=== PATIENT | female | born 1985 | race Caucasian/White ===

== ENCOUNTER 2018-09-03 11:47 | Emergency (ER) | payer MEDICAID, SELFPAY ==
[2018-09-03 11:49] VITALS: PULSE 68; RESP 16; TEMP 36.6; O2SAT 98; BMI 23.3
--- NOTE | 2018-09-03 12:02 | CT_ITS ---
STUDY: CT BRAIN WITHOUT CONTRAST REASON FOR EXAM: Female, 33 years old. Dizziness/weakness. History of moyamoya disease. RADIATION DOSAGE (If Supplied By Facility): CTDIvol = ( 44.99 ) mGy, DLP = ( 745.49 ) mGycm TECHNIQUE: Transaxial CT imaging of the brain was performed without administration of intravenous contrast material. Individualized dose optimization techniques were used for this CT. COMPARISON: None. FINDINGS: Normal soft tissue structures. The patient is status post bilateral frontal parietal craniotomy. Normal size ventricles and extra-axial spaces for the patient's age. Focal encephalomalacia is seen in the anterior left frontal lobe suggestive of prior ischemic changes. Small focal area of encephalomalacia is also seen in the lateral aspect of the right frontal lobe. Focal encephalomalacia is also seen in the superior medial aspect of the left frontal lobe. Normal basal ganglia and thalami. Normal brainstem. Normal cerebellum. There is no intracranial hemorrhage. There are no findings of an acute ischemic infarction. Normal visualized paranasal sinuses. CT/Brain/Head without Contrast IMPRESSION: No acute abnormality is seen. 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 Prior bilateral frontal parietal craniotomy. Electronically Signed: Alcides Hamlin MD at 12:49 EST , Service support ,
[2018-09-03] MEDS: 0.9% Normal Saline 1,000 ML 150 ML IV (12:16)
[2018-09-03 12:31] LABS: Absolute Lymphocyte Count 1.97 X10^3/ul (0.83-4.51); Absolute Neutrophil Count 5.2 X10^3/uL (2.0-7.7); Basophil# 0.04 X10^3/uL; Basophil% 0.5 % (0-1); Eosinophil# 0.07 X10^3/uL; Eosinophils% 0.9 % (0-5); Hematocrit 44.7 % (37-47); Hemoglobin 15.3 g/dl (12.0-15.0); Lymphocyte # 1.97 X10^3/ul (4.0); Lymphocyte % 25.2 % (19-41); Mean Corp Hgb Conc 34.2 g/gl (32-36); Mean Corpuscular Hgb 31.5 pg (27.0-32.0); Mean Corpuscular Volume 92.2 fL (81-99); Mean Platelet Vol. 11.9 fl (6.2-12.0); Monocyte# 0.49 X10^3/uL; Monocyte% 6.3 % (0-10); Neutrophil # 5.23 X10^3/uL (2.7-7.7); POSITIVE COUNT NO; POSITIVE DIFFERENTIAL NO; POSITIVE MORPHOLOGY NO; Platelet Count 179 K/mm3 (150-450); RBC Distribution Width CV 13.3 % (11.6-14.6); RBC Distribution Width SD 44.2 fl (35.1-43.9); Red Blood Count 4.85 M/mm3 (4.2-5.4); White Blood Count 7.8 K/mm3 (4.4-11.0)
[2018-09-03 12:43] LABS: Anion Gap 6 (5-15); BUN 12 mg/dL (7-18); BUN/Creat Ratio 12.5 RATIO (10-20); Calcium,Total 8.9 mg/dL (8.5-10.1); Chloride 107 mmol/L (98-107); Creatinine, Serum 0.96 mg/dL (0.55-1.02); EST Glomerular Filtration Rate 71 mL/min (>60); Est Glom Filt Rate - Afr Amer 86 mL/min (>60); Estimated Creatinine Clearance 78.03 ml/min; Glucose 107 mg/dL (74-106); Potassium 3.7 mmol/L (3.5-5.1); Sodium Level 141 mmol/L (136-145)
[2018-09-03 12:55] LABS: Pregnancy, Serum, hCG Quali. NEGATIVE Negative (0-9 Nonpreg)
[2018-09-03 13:09] LABS: Carboxyhemoglobin Frac (CO) 8.5 % (0.0-1.5)
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
--- NOTE | 2018-09-03 13:20 | ED.DEP ---
ED Disposition - Plan for ED Patient: Chief Complaint: Shortness of Breath Instructions: ED Dizziness [facility] Referrals: Alley Petersen MD [Primary Care Provider] - 3-5 Days
[2018-09-03 13:21] VITALS: BP 130/93; PULSE 63; RESP 16; O2SAT 98
--- OUTSIDE RECORDS SUMMARY | 2018-11-05 11:56 | XMS RPT_ITS ---
:1985 Author Organization OH[facility] Care Team Providers Name Role Phone Gloria Saldivar Attending Unavailable Nicola, Simranjot Primary Care Unavailable PROBLEMS PROBLEMS No Problem Records FoundPROCEDURES PROCEDURES No Procedure Records FoundRESULTS RESULTS PROGRESS Observed: 09/05/2018 Status: COMPLETED Source: [place] 11:50 AM [facility] [place] REPOSITORY HNO ID: [id number] Author: Koko Madsen Service: (none) Author Type: In Store Marketer Type: Progress Notes Filed: 09/05/2018 11:55 AM Note Text: ED Follow Up: Patient discharged from [facility] ED on 09/03/18. 1. How are you feeling since your ED visit? Feeling better Have your symptoms improved or resolved? Yes 2. Were you prescribed any medications while in the ED or advised to stop any medication? No - If yes, were you able to fill your prescriptions? Not applicable -if stopped medication, what was the medication? n/a 3. Were you advised to schedule a follow up appointment with your provider? No - If no, Do you feel like you need an appointment scheduled? No - If yes, Do you need this scheduled now or has this already been scheduled? Not applicable 4. Were you able to contact the office or counter person provider prior to your ED visit? Not applicable 5. Is there anything else I can do for you today? Not applicable Pt states she had a problem with her car exhaust which was just fixed today. She had driven a decent distance in her car and got to work and felt funny, dizzy and her boss told her go to ER. She has not had any more dizziness since. Koko Madsen CMA CNPTOUTREACH Observed: 09/05/2018 Status: COMPLETED Source: [place] 12:00 AM [facility] REPOSITORY Patient Outreach (AGFAMPLE) LEE LIND ([id number]) 1985 F Date Time Provider Department 09/05/18 KOKO MADSEN) EPIFANIO During your visit today, we recorded the following information about you: Koko Madsen CMA 09/05/2018 11:55 AM Signed ED Follow Up: Patient discharged from [facility] ED on 09/03/18. 1. How are you feeling since your ED visit? Feeling better Have your symptoms improved or resolved? Yes 2. Were you prescribed any medications while in the ED or advised to stop any medication? No - If yes, were you able to fill your prescriptions? Not applicable -if stopped medication, what was the medication? n/a 3. Were you advised to schedule a follow up appointment with your provider? No - If no, Do you feel like you need an appointment scheduled? No - If yes, Do you need this scheduled now or has this already been scheduled? Not applicable 4. Were you able to contact the office or counter person provider prior to your ED visit? Not applicable 5. Is there anything else I can do for you today? Not applicable Pt states she had a problem with her car exhaust which was just fixed today. She had driven a decent distance in her car and got to work and felt funny, dizzy and her boss told her go to ER. She has not had any more dizziness since. Koko Madsen CMA Allergies As of Date: 09/05/2018 Noted Allergy Reaction PENICILLINS 10/15/2006 Date Reviewed: 04/22/2018 Reviewed by: Quita Altamirano) Paloma - Fully Assessed Prescriptions as of 09/05/2018 Sig: LEVOTHYROXINE 75 MCG TABLET Take 1 tablet by mouth once d* Problem List As Of Date 09/05/2018 Noted Resolved TOX DIF GOITER NO CRISIS [E05.00] INVALID FOR* Hypothyroid [E03.9] INVALID FOR* More... Anxiety [F41.9] INVALID FOR* Alcohol abuse [F10.10] INVALID FOR* More... Hypothyroidism [E03.9] More... 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 Hypertension [I10] INVALID FOR*06/30/2013 More... 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 Seizure [R56.9] INVALID FOR* History of alcohol abuse [Z87.898] INVALID FOR* More... History of cocaine use [Z87.898] INVALID FOR* More... History of depression [Z86.59] INVALID FOR* More... Tobacco use in [O99.330] INVALID FOR* More... H/O sexually transmitted disease [Z86.19] INVALID FOR* More... Patient requested diagnostic testing [Z01.89] INVALID FOR*06/30/2013 More... Family history of autism [Z81.8] INVALID FOR* More... Supervision of other high-risk (V23.89*INVALID FOR* More... Patient requested diagnostic testing [Z01.89] INVALID FOR* More... Palpitation [R00.2] INVALID FOR* Tobacco use disorder [F17.200] INVALID FOR* Encounter Status:Closed by KOKO MADSEN on 09/05/18 DISCHARGE INSTRUCTION Observed: 09/03/2018 Status: F Source: [place] 1:21 PM [facility] REPOSITORY [facility] Medical Records Department [address] [place] [address] Discharge Instruction 09/03/18 1320 MR#: [id number] Acct: [id number] Name: LEE LIND Rep #: [id number] : 1985 33 From: Gloria Saldivar DO PCP: Marcel Block MD Status: REG ER ED Disposition - Plan for ED Patient: Chief Complaint: Shortness of Breath Instructions: ED Dizziness [facility] Referrals: Marcel Block MD [Primary Care Provider] - 3-5 Days What to do if you have Problems For any increased pain, shortness of breath, bleeding, nausea or vomiting, chest pain, or any unexpected problems, contact your Primary Care Provider. Call [facility] ([phone]) or report to the closest Emergency Room. Call 911 if necessary. 09/03/18 1321 <Electronically signed by Gloria Saldivar DO> Date Gloria Saldivar DO Cosigner Signature (If Indicated): Date CC: Marcel Block MD EMERGENCY DEPARTMENT Observed: 09/03/2018 Status: F Source: [place] SUMMARY 1:20 PM [facility] REPOSITORY [facility] Medical Records Department [address] [place] [address] Emergency Department Summary 09/03/18 1317 MR#: [id number] Acct: [id number] Name: LEE LIND Rep #: [id number] : 1985 33 From: Gloria Saldivar DO PCP: Marcel Block MD Status: REG ER - ER Visit Summary Date of Service: 09/03/18 Chief Complaint: [Generalized weakness, lightheadedness, shortness of breath] History of Present Illness: The patient is a 33 F [presents the emergency department with multiple vague complaints that started this morning. Patient states that she was driving her vehicle and her muffler had broken off yesterday. Patient states that she started feeling weird. Vision felt somewhat lightheaded and short of breath and is kind of weak all over. Patient was not sure if this was anxiety related. Patient also was not sure if it may be related to carbon monoxide. Patient also is concerned because she has a history of moyamoya disease. She does describe a slight headache currently. She denies any visual changes. She denies any paresthesias. She denies any focal weakness. She denies recent illness.] Physical Examination: [HEENT-PERRLA, EOMI. Cranial nerves II through XII grossly intact. TMs clear. Mucous membranes moist. No adenopathy. Cardiovascular-regular rate and rhythm without murmur or ectopy Lungs-clear to auscultation, chest wall stable without crepitus or subcu emphysema Abdomen-normoactive bowel sounds, soft, nontender, no rebound or rigidity, no peritoneal signs. Neuro pjpy-pkonoi-ores and heel ayala testing within normal limits, negative Romberg, negative pronator drift, fundi benign Extremities-intact 4, normal range of motion, normal pulses, atraumatic] Test Results: [CT scan of the brain without contrast showed some chronic changes involving the frontal lobes with some encephalomalacia. CBC with differential is normal. Chemistries were normal. Carboxy hemoglobin was 8.5.] Emergency Department Course and Treatment: [] Treatment Plan: [Follow-up with primary care physician in 3-5 days.] Disposition: [Discharged home in stable condition. Patient advised to have her muffler repaired. Given her carboxyhemoglobin level of 8.5 suspect this may be related to her smoking history as she does smoke a pack a day. It is also possible she may have had increased carbon monoxide exposure related to her muffler.] Impression: [Dizziness-etiology uncertain] This note was generated with [employer] dictation software. It may contain incorrect words, spelling, and punctuation that were not noted in review of the chart prior to signing ED Disposition - Plan for ED Patient: Chief Complaint: Shortness of Breath Referrals: Marcel Block MD [Primary Care Provider] - What to do if you have Problems For any increased pain, shortness of breath, bleeding, nausea or vomiting, chest pain, or any unexpected problems, contact your Primary Care Provider. Call [facility] ([phone]) or report to the closest Emergency Room. Call 911 if necessary. 09/03/18 1320 <Electronically signed by Gloria Saldivar DO> Date Remus Ungur DO Cosigner Signature (If Indicated): Date CC: Marcel Block MD CARBOXYHEMOGLOBIN FRAC (CO) Collected: Status: F Source: [place] 09/03/2018 12:40 PM [facility] REPOSITORY TYPE CODE TESTS RESULT OUT OF RANGE REFERENCE UNITS LAB L511.0130 0.0-1.5 % High COHb 8.5 Result Comment: * NON-SMOKER RANGE 1.6 - 5.0% * LIGHT SMOKER RANGE 5.1 - 9.0% * HEAVY SMOKER RANGE Performed By: #### L511.0130 #### [facility] [address] [place], [address] CBC W/DIFF, AUTOMATED Collected: 09/03/2018 Status: F Source: [place] 12:16 PM [facility] REPOSITORY TYPE CODE TESTS RESULT OUT OF RANGE REFERENCE UNITS LAB L100.1000 4.4-11.0 K/mm3 Normal WBC 7.8 LAB L100.1200 4.2-5.4 M/mm3 Normal RBC 4.85 LAB L100.1300 12.0-15.0 g/dl High HGB 15.3 LAB L100.1400 37-47 % Normal HCT 44.7 LAB L100.1500 81-99 fL Normal MCV 92.2 LAB L100.1600 27.0-32.0 pg Normal MCH 31.5 LAB L100.1700 32-36 g/gl Normal MCHC 34.2 LAB L100.1810 11.6-14.6 % Normal RDW CV 13.3 LAB L100.1820 35.1-43.9 fl High RDW SD 44.2 LAB L100.1900 150-450 K/mm3 Normal PLT 179 LAB L100.2000 6.2-12.0 fl Normal MPV 11.9 LAB L100.2100 47-70 % Normal NEUT% 67.0 LAB L100.2200 19-41 % Normal LY% 25.2 LAB L100.2300 0-10 % Normal MONO% 6.3 LAB L100.2400 0-5 % Normal EO% 0.9 LAB L100.2500 0-1 % Normal BASO% 0.5 LAB L100.2550 0.0-0.9 % Normal IM GRAN % 0.100 Result Comment: IG% - Immature Granulocytes (promyelocytes, myelocytes and metamyelocytes) > 1% indicates that a LEFT SHIFT is Present. LAB L100.2620 2.0-7.7 X10 3/uL Normal Absolute Neut 5.2 LAB L100.2720 0.83-4.51 X10 3/ul Normal Absolute Lymph 1.97 Performed By: #### L100.0100 #### [facility] [address] [place], [place], [address] BASIC METABOLIC Collected: 09/03/2018 Status: F Source: [place] PROFILE (BMP) 12:16 PM [facility] REPOSITORY TYPE CODE TESTS RESULT OUT OF RANGE REFERENCE UNITS LAB L501.0100 74-106 mg/dL High GLU 107 Result Comment: Fasting Glucose result from 100 to 125 mg/dL suggests IMPAIRED HOMEOSTASIS per A.D.A. criteria. Please note revised GLUCOSE reference range effective 2017. LAB L501.1000 7-18 mg/dL Normal BUN 12 LAB L501.1100 0.55-1.02 mg/dL Normal CREAT,SERUM 0.96 Result Comment: The validity of the calculated GFR AND GFRAA in patients over 70 years has not been determined. Clinical correlation is essential. LAB L501.1110 >60 mL/min Normal EST GFR 71 Result Comment: Non- GFR Calc LAB L501.1115 >60 mL/min Normal EST GFR - AA 86 Result Comment: GFR Calc LAB L501.1255 ml/min Normal Estimated CRCL 78.03 LAB L501.1300 10-20 RATIO Normal BUN/CRE 12.5 LAB L501.2200 8.5-10 mg/dL Normal .1 CA 8.9 LAB L501.5300 136-14 mmol/L Normal 5 NA 141 LAB L501.5600 3.5-5. mmol/L Normal 1 K 3.7 LAB L501.5900 98-107 mmol/L Normal CL 107 LAB L501.6100 21.0-3 mmol/L Normal 2.0 CO2 28.0 LAB L501.6200 5-15 Normal GAP 6 Performed By: #### L500.2500 #### [facility] [address] [place], [address] ,SERUM,HCG QUALI. Collected: Status: F Source: [place] 09/03/2018 12:16 PM [facility] REPOSITORY TYPE CODE TESTS RESULT OUT OF REFERENCE UNITS RANGE LAB L700.6700 =>Qualitative mIU/mL Normal HCG Qual < 1 triggr LAB L700.7000 0-9 Nonpreg Negative Normal HCGSQUAL NEGATIVE Performed By: #### L700.6800 #### [facility] [address], [address] BRAIN/HEAD WITHOUT Observed: 09/03/2018 Status: F Source: [place] CONTRAST 12:04 PM [facility] REPOSITORY [facility] Imaging Services [address] [facility] [place] [address] Brain/Head without Contrast MR#: [id number] Acct: [id number] Name: LEE LIND Rep #: [id number] : 1985 F 33 From: Alcides Hamlin MD PCP: OUT OF TOWN DOCTOR Status: PRE ER Study: Brain/Head without Contrast Date of Exam: 09/03/18 Exam# [id number] Ordering Dr: Gloria Saldivar DO STUDY: CT BRAIN WITHOUT CONTRAST REASON FOR EXAM: Female, 33 years old. Dizziness/weakness. History of moyamoya disease. RADIATION DOSAGE (If Supplied By Facility): CTDIvol = ( 44.99 ) mGy, DLP = ( 745.49 ) mGycm TECHNIQUE: Transaxial CT imaging of the brain was performed without administration of intravenous contrast material. Individualized dose optimization techniques were used for this CT. COMPARISON: None. FINDINGS: Normal soft tissue structures. The patient is status post bilateral frontal parietal craniotomy. Normal size ventricles and extra-axial spaces for the patient's age. Focal encephalomalacia is seen in the anterior left frontal lobe suggestive of prior ischemic changes. Small focal area of encephalomalacia is also seen in the lateral aspect of the right frontal lobe. Focal encephalomalacia is also seen in the superior medial aspect of the left frontal lobe. Normal basal ganglia and thalami. Normal brainstem. Normal cerebellum. There is no intracranial hemorrhage. There are no findings of an acute ischemic infarction. Normal visualized paranasal sinuses. CT/Brain/Head without Contrast IMPRESSION: No acute abnormality is seen. 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 Prior bilateral frontal parietal craniotomy. Electronically Signed: Alcides Hamlin MD at 12:49 EST , Service support , CC: OUT OF TOWN DOCTOR; Gloria Saldivar DO Automatic Grinder Operator: Signed PROGRESS Observed: 04/22/2018 Status: COMPLETED Source: [place] 9:01 AM [facility] REPOSITORY O ID: [id number] Author: Marcel Block Service: (none) Author Type: Physician Type: Progress Notes Filed: 04/22/2018 9:46 AM Note Text: Subjective: Lee Lind is a 33 year old White female, Patient presents with: Hypothyroidism: 6 month f/u - would lilke to talk about Wellbutrin to stop smoking . HPI Patient last seen 10/22/17 No concerns today. Last TSH 2.00 (08/13/17) Last Pap 4-5 yrs ago - [facility]. Son is 4 yr old. H/o brain Sx - 2012, last saw NeuroSx 2015 - was cleared. 23 months sober from alcohol. No IVDA No cocaine > 10 yr ago. Smoked since the age of 15 y/o, wants to quit smoking. She is due to get health insurance starting October 2018, and she does not want to pay high insurance premiums for a smoker. She has been trying to cut down cigarettes on her own. 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 No drinks for the past 3 weeks (3-5 drinks per week before that) Family history reviewed. ALLERGIES Allergen Reactions - Penicillins levothyroxine (SYNTHROID) 75 mcg tablet, Take 1 tablet by mouth once daily. Take on empty stomach. For Thyroid. No current facility-administered medications for this visit. Review of Systems Constitutional: Negative for chills, fever, malaise/fatigue and weight loss. HENT: Negative for congestion and sore throat. Eyes: Negative for blurred vision and double vision. Respiratory: Negative for cough, shortness of breath and wheezing. Cardiovascular: Negative for chest pain and leg swelling. Gastrointestinal: Negative for abdominal pain, blood in stool, constipation, diarrhea, heartburn, nausea and vomiting. Genitourinary: Negative for dysuria and hematuria. Skin: Negative for rash. Neurological: Negative for dizziness and headaches. Psychiatric/Behavioral: Negative for depression and suicidal ideas. The patient does not have insomnia. BP 112/72 Pulse 62 Temp 98 Resp 16 Ht 5' 5 (1.65m) Wt 150 lb 6.4 oz (68.2kg) SpO2 96% BMI 25.03 kg/(m2). Physical Exam Constitutional: She is oriented to person, place, and time and well-developed, well-nourished, and in no distress. No distress. HENT: Head: Normocephalic. Eyes: Conjunctivae are normal. Right eye exhibits no discharge. Left eye exhibits no discharge. Neck: No thyromegaly present. Cardiovascular: Normal rate, regular rhythm, normal heart sounds and intact distal pulses. No murmur heard. Pulmonary/Chest: Effort normal and breath sounds normal. No respiratory distress. She has no wheezes. Abdominal: Soft. Bowel sounds are normal. She exhibits no distension. There is no tenderness. Musculoskeletal: Edema: no LE edema. Lymphadenopathy: She has no cervical adenopathy. Neurological: She is alert and oriented to person, place, and time. Skin: Skin is warm and dry. Psychiatric: Mood and affect normal. ASSESSMENT/PLAN: 1. Acquired hypothyroidism - ICD9: 244.9, ICD10: E03.9 (primary diagnosis) - Instructed patient on importance of taking on an empty stomach either first thing in the morning or at bedtime. - Last TSH 2.00 (08/13/17) - check TSH - TSH, REFLEX 2. Tobacco use disorder - ICD9: 305.1, ICD10: F17.200 - Cessation encouraged. Pt is motivated. She has tried to cut down. So is willing to try dropping down to 1 cigarette a week for the next several weeks and if she is unable to do so she will make an appointment and I will consider starting her on Wellbutrin. She doesn't want to try nicotine patch/ gum. - Physiologic and physical aspects of tobacco addiction as well as strategies for quitting were discussed. - Counseling was given focusing on the harmful effects of this addiction especially given the patient's medical condition(s) which will be worsened because of the chemicals in tobacco. - Counseling was given 3-4 minutes. - Recommended to called 1-800-QUIT NOW 3. Screening for lipid disorders - ICD9: V77.91, ICD10: Z13.220 - LIPID PANEL BASIC 4. Screening for deficiency anemia - ICD9: V78.1, ICD10: Z13.0 - CBC 5. Screening for diabetes mellitus - ICD9: V77.1, ICD10: Z13.1 - COMP METABOLIC PANEL Advised patient to get flu vaccine this fall. The vaccine is currently not available in our office. Discussed above plan with patient. Pt agreeable with above plan. Marcel Block MD This note was partially generated using [employer] Power voice recognition system, and there may be some incorrect words, spellings, and punctuation that were not noted in checking the note before saving. CNOV Observed: 04/22/2018 Status: COMPLETED Source: [place] 9:00 AM [facility] REPOSITORY Office Visit (AGINTMLW) LEE LIND ([id number]) 1985 F Date Time Provider Department 04/22/18 9:00 AM MARCEL BLOCK AGINTMLW During your visit today, we recorded the following information about you: Temperature Pulse Respiration Blood pressure 98 degrees 62/minute 16/minute 112/72 Weight Height 68.2 kg 1.651 m Marcel Block MD 04/22/2018 9:46 AM Signed Subjective: Lee Lind is a 33 year old White female, Patient presents with: Hypothyroidism: 6 month f/u - would lilke to talk about Wellbutrin to stop smoking . HPI Patient last seen 10/22/17 No concerns today. Last TSH 2.00 (08/13/17) Last Pap 4-5 yrs ago - [facility]. Son is 4 yr old. H/o brain Sx - 2012, last saw NeuroSx 2015 - was cleared. 23 months sober from alcohol. No IVDA No cocaine > 10 yr ago. Smoked since the age of 15 y/o, wants to quit smoking. She is due to get health insurance starting October 2018, and she does not want to pay high insurance premiums for a smoker. She has been trying to cut down cigarettes on her own. 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 No drinks for the past 3 weeks (3-5 drinks per week before that) Family history reviewed. ALLERGIES Allergen Reactions - Penicillins levothyroxine (SYNTHROID) 75 mcg tablet, Take 1 tablet by mouth once daily. Take on empty stomach. For Thyroid. No current facility-administered medications for this visit. Review of Systems Constitutional: Negative for chills, fever, malaise/fatigue and weight loss. HENT: Negative for congestion and sore throat. Eyes: Negative for blurred vision and double vision. Respiratory: Negative for cough, shortness of breath and wheezing. Cardiovascular: Negative for chest pain and leg swelling. Gastrointestinal: Negative for abdominal pain, blood in stool, constipation, diarrhea, heartburn, nausea and vomiting. Genitourinary: Negative for dysuria and hematuria. Skin: Negative for rash. Neurological: Negative for dizziness and headaches. Psychiatric/Behavioral: Negative for depression and suicidal ideas. The patient does not have insomnia. BP 112/72 Pulse 62 Temp 98 Resp 16 Ht 5' 5 (1.65m) Wt 150 lb 6.4 oz (68.2kg) SpO2 96% BMI 25.03 kg/(m2). Physical Exam Constitutional: She is oriented to person, place, and time and well-developed, well-nourished, and in no distress. No distress. HENT: Head: Normocephalic. Eyes: Conjunctivae are normal. Right eye exhibits no discharge. Left eye exhibits no discharge. Neck: No thyromegaly present. Cardiovascular: Normal rate, regular rhythm, normal heart sounds and intact distal pulses. No murmur heard. Pulmonary/Chest: Effort normal and breath sounds normal. No respiratory distress. She has no wheezes. Abdominal: Soft. Bowel sounds are normal. She exhibits no distension. There is no tenderness. Musculoskeletal: Edema: no LE edema. Lymphadenopathy: She has no cervical adenopathy. Neurological: She is alert and oriented to person, place, and time. Skin: Skin is warm and dry. Psychiatric: Mood and affect normal. ASSESSMENT/PLAN: 1. Acquired hypothyroidism - ICD9: 244.9, ICD10: E03.9 (primary diagnosis) - Instructed patient on importance of taking on an empty stomach either first thing in the morning or at bedtime. - Last TSH 2.00 (08/13/17) - check TSH - TSH, REFLEX 2. Tobacco use disorder - ICD9: 305.1, ICD10: F17.200 - Cessation encouraged. Pt is motivated. She has tried to cut down. So is willing to try dropping down to 1 cigarette a week for the next several weeks and if she is unable to do so she will make an appointment and I will consider starting her on Wellbutrin. She doesn't want to try nicotine patch/ gum. - Physiologic and physical aspects of tobacco addiction as well as strategies for quitting were discussed. - Counseling was given focusing on the harmful effects of this addiction especially given the patient's medical condition(s) which will be worsened because of the chemicals in tobacco. - Counseling was given 3-4 minutes. - Recommended to called 1-800-QUIT NOW 3. Screening for lipid disorders - ICD9: V77.91, ICD10: Z13.220 - LIPID PANEL BASIC 4. Screening for deficiency anemia - ICD9: V78.1, ICD10: Z13.0 - CBC 5. Screening for diabetes mellitus - ICD9: V77.1, ICD10: Z13.1 - COMP METABOLIC PANEL Advised patient to get flu vaccine this fall. The vaccine is currently not available in our office. Discussed above plan with patient. Pt agreeable with above plan. Marcel Block MD This note was partially generated using [employer] voice recognition system, and there may be some incorrect words, spellings, and punctuation that were not noted in checking the note before saving. Marcel Block MD 04/22/2018 9:30 AM Addendum SMOKING CESSATION Stopping smoking is the most important thing you can do to protect your current and future health, as well as that of your family. It is the most potent risk factor for the future development of coronary artery disease and heart attacks. Smoking is both an addiction and a learned behavior. The nicotine withdrawal takes anywhere from 2-4 weeks and results in symptoms such as irritability, fatigue, insomnia, coughing, dizziness, poor concentration, hunger and cigarette cravings. After the nicotine withdrawal period, the learned linkage between certain acts or situations and cigarette use remain. Strategies to deal with these must be developed along with new behaviors to ensure successful smoking cessation. STRATEGIES TOWARD SMOKING CESSATION - Make a list of the reasons why you want to quit, plus the benefits to be gained, and compare them to the reasons why you should continue to smoke. - Pick a specific quit date. - If you are interested in using nicotine patches or gum to assist with the nicotine withdrawal, let the staff know. - Inform friends, family, and co-workers that you are quitting and when your quit date is. Ask for their understanding and support. - Prepare your environment by removing all cigarettes prior to your quit date. - Prior to your quit date, avoid smoking in places where you spend a lot of time (such as the house, work, car). - From previous quit attempts, identify what helped you to stop smoking. - From previous quit attempts, identify what triggered relapse. How can you avoid that again? - What things (situations, emotions) do you anticipate will be most challenging, especially in the first few weeks, to your quitting effort? - What can you do to address these challenges? - Avoid (or limit) alcohol consumption during the quitting process. - If your spouse or close coworker currently smoke, consider quitting together or at the very least, develop specific plans to maintain your cigarette abstinence while in the home or at work. - Take each day, each hour, each craving, one at a time. Every step or action you take toward smoking cessation is a success. The only failure is the failure to try. - The health of you and your family, is worth the effort. STOP SMOKING CHECK LIST Preparing to Quit: ___ Make a personal pact with yourself to quit. ___ Pick a date for quitting completely. (My date to quit is ____.) ___ Write down on a card the three most important reasons for quitting. Carry the card with you from now on. Look at it several times a day. ___ Prior to quitting, eliminate smoking completely in 2 or 3 of your high risk situations. ___ Reduce consumption to one pack per day or less. ___ Change to a less desirable brand of cigarettes. ___ Discard your optical sales associate. Use matches. Carry your cigarettes in a different place. ___ Spend a little time each day picturing in your mind stressful events occurring in the future and you not smoking. Actual Quitting: The First Two Weeks ___ Get rid of all cigarettes. Put away all smoking related objects such as ashtrays. Ask the people you live with not to smoke in your presence for the first two weeks. ___ Spend as much time as possible with non-smoking people. ___ Keep busy, especially on evenings and weekends. ___ Avoid high risk situations (large parties, bars, etc.). ___ Spend lots of time in places that prohibit or discourage smoking (e.g., theaters, libraries.) ___ Drink plenty of fluids. ___ Don't substitute food or sugar based products for cigarettes. Use approved substitutions. (... ice water, high bulk/low calorie foods, sugarless gum, mouthwash, brushing teeth.) ___ Begin or increase regular exercise program. ___ When experiencing withdrawal effects: 1. Remind yourself why you are quitting (from your card). 2. Remind yourself that whatever discomfort you are experiencing is only a tiny fraction of the probable discomfort associated with continued smoking. 3. Practice deep breathing or other relaxation techniques - tapes. ___ Remind yourself that you can free yourself from this unhealthy, expensive, messy habit and become a non-smoker. Maintenance of Quitting: After two weeks ___ Remind yourself that the desire to smoke is linked to a great many situations, people and emotional stress. ___ When you do have a desire to smoke, remember that it only lasts a few seconds: distract yourself and leave the situation if necessary. ___ After each desire to smoke has passed, pat yourself on the back, you have just made progress in breaking the habit forever. ___ Save the money on wasted on cigarettes in a special fund and buy yourself something nice. Maintenance of Quitting: After Two Months ___ Be particularly vigilant when unusual life events occur. (.. weddings, holidays, vacations.) ___ Be particularly vigilant when stressful life events occur (e.g., relationship problems, financial or work problems.) ___ Remind yourself regularly that not smoking is completely within your personal control. ___ Never lull yourself into thinking you are out of danger and you can safely have a cigarette or two. -- you cannot!!!!! ___ If, by chance, you do slip and have one or more cigarettes, do not conclude that all is lost. Return to complete abstinence immediately and learn from your experience. ___ If you have gained significant weight since quitting, now is the time to do something about it. ___ Each time you see a cigarettes advertisement, remind yourself of why you quit. Also remember that a powerful industry spends billions of dollars each year trying to get people like yourself re-hooked. Please make appt with your DIRECTOR OF FIELD SERVICE ( [facility]) for pap/ pelvic exam as discussed. Referring Provider: MARCEL BLOCK [[id number]] Allergies As of Date: 04/22/2018 Noted Allergy Reaction PENICILLINS 10/15/2006 Date Reviewed: 04/22/2018 Reviewed by: Quita Altamirano) [place]oma - Fully Assessed Reason for Visit: Hypothyroidism [1738] Cmt: 6 month f/u - would lilke to talk about Wellbutrin to stop smoking Primary Visit Diagnosis:Acquired hypothyroidism [E03.9] Other Visit Diagnoses:Tobacco use disorder [F17.200] Screening for lipid disorders [Z13.220] Screening for deficiency anemia [Z13.0] Screening for diabetes mellitus [Z13.1] Order(s):levothyroxine (SYNTHROID) 75 mcg tabletTake 1 tablet by mouth once daily. Take on empty stomach. For Thyroid.Disp: 90 tabletRfl: 1 TSH, REFLEX [[id number]] Order #: [id number] FUTURE CBC [SQCBC] Order #: [id number] FUTURE COMP METABOLIC PANEL [SQCMP] Order #: [id number] FUTURE LIPID PANEL BASIC [SQLIPB] Order #: [id number] FUTURE Prescriptions as of 04/22/2018 Sig: LEVOTHYROXINE 75 MCG TABLET Take 1 tablet by mouth once d* Problem List As Of Date 04/22/2018 Noted Resolved TOX DIF GOITER NO CRISIS [E05.00] INVALID FOR* Hypothyroid [E03.9] INVALID FOR* More... Anxiety [F41.9] INVALID FOR* Alcohol abuse [F10.10] INVALID FOR* More... Hypothyroidism [E03.9] More... 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 Hypertension [I10] INVALID FOR*06/30/2013 More... 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 Seizure [R56.9] INVALID FOR* History of alcohol abuse [Z87.898] INVALID FOR* More... History of cocaine use [Z87.898] INVALID FOR* More... History of depression [Z86.59] INVALID FOR* More... Tobacco use in [O99.330] INVALID FOR* More... H/O sexually transmitted disease [Z86.19] INVALID FOR* More... Patient requested diagnostic testing [Z01.89] INVALID FOR*06/30/2013 More... Family history of autism [Z81.8] INVALID FOR* More... Supervision of other high-risk (V23.89*INVALID FOR* More... Patient requested diagnostic testing [Z01.89] INVALID FOR* More... Palpitation [R00.2] INVALID FOR* Tobacco use disorder [F17.200] INVALID FOR* Notes for Staff Discussed this visit Other instructions from your clinician: SMOKING CESSATION Stopping smoking is the most important thing you can do to protect your current and future health, as well as that of your family. It is the most potent risk factor for the future development of coronary artery disease and heart attacks. Smoking is both an addiction and a learned behavior. The nicotine withdrawal takes anywhere from 2-4 weeks and results in symptoms such as irritability, fatigue, insomnia, coughing, dizziness, poor concentration, hunger and cigarette cravings. After the nicotine withdrawal period, the learned linkage between certain acts or situations and cigarette use remain. Strategies to deal with these must be developed along with new behaviors to ensure successful smoking cessation. STRATEGIES TOWARD SMOKING CESSATION - Make a list of the reasons why you want to quit, plus the benefits to be gained, and compare them to the reasons why you should continue to smoke. - Pick a specific quit date. - If you are interested in using nicotine patches or gum to assist with the nicotine withdrawal, let the staff know. - Inform friends, family, and co-workers that you are quitting and when your quit date is. Ask for their understanding and support. - Prepare your environment by removing all cigarettes prior to your quit date. - Prior to your quit date, avoid smoking in places where you spend a lot of time (such as the house, work, car). - From previous quit attempts, identify what helped you to stop smoking. - From previous quit attempts, identify what triggered relapse. How can you avoid that again? - What things (situations, emotions) do you anticipate will be most challenging, especially in the first few weeks, to your quitting effort? - What can you do to address these challenges? - Avoid (or limit) alcohol consumption during the quitting process. - If your spouse or close coworker currently smoke, consider quitting together or at the very least, develop specific plans to maintain your cigarette abstinence while in the home or at work. - Take each day, each hour, each craving, one at a time. Every step or action you take toward smoking cessation is a success. The only failure is the failure to try. - The health of you and your family, is worth the effort. STOP SMOKING CHECK LIST Preparing to Quit: ___ Make a personal pact with yourself to quit. ___ Pick a date for quitting completely. (My date to quit is ____.) ___ Write down on a card the three most important reasons for quitting. Carry the card with you from now on. Look at it several times a day. ___ Prior to quitting, eliminate smoking completely in 2 or 3 of your high risk situations. ___ Reduce consumption to one pack per day or less. ___ Change to a less desirable brand of cigarettes. ___ Discard your optical sales associate. Use matches. Carry your cigarettes in a different place. ___ Spend a little time each day picturing in your mind stressful events occurring in the future and you not smoking. Actual Quitting: The First Two Weeks ___ Get rid of all cigarettes. Put away all smoking related objects such as ashtrays. Ask the people you live with not to smoke in your presence for the first two weeks. ___ Spend as much time as possible with non-smoking people. ___ Keep busy, especially on evenings and weekends. ___ Avoid high risk situations (large parties, bars, etc.). ___ Spend lots of time in places that prohibit or discourage smoking (e.g., theaters, libraries.) ___ Drink plenty of fluids. ___ Don't substitute food or sugar based products for cigarettes. Use approved substitutions. (... ice water, high bulk/low calorie foods, sugarless gum, mouthwash, brushing teeth.) ___ Begin or increase regular exercise program. ___ When experiencing withdrawal effects: 1. Remind yourself why you are quitting (from your card). 2. Remind yourself that whatever discomfort you are experiencing is only a tiny fraction of the probable discomfort associated with continued smoking. 3. Practice deep breathing or other relaxation techniques - tapes. ___ Remind yourself that you can free yourself from this unhealthy, expensive, messy habit and become a non-smoker. Maintenance of Quitting: After two weeks ___ Remind yourself that the desire to smoke is linked to a great many situations, people and emotional stress. ___ When you do have a desire to smoke, remember that it only lasts a few seconds: distract yourself and leave the situation if necessary. ___ After each desire to smoke has passed, pat yourself on the back, you have just made progress in breaking the habit forever. ___ Save the money on wasted on cigarettes in a special fund and buy yourself something nice. Maintenance of Quitting: After Two Months ___ Be particularly vigilant when unusual life events occur. (.. weddings, holidays, vacations.) ___ Be particularly vigilant when stressful life events occur (e.g., relationship problems, financial or work problems.) ___ Remind yourself regularly that not smoking is completely within your personal control. ___ Never lull yourself into thinking you are out of danger and you can safely have a cigarette or two. -- you cannot!!!!! ___ If, by chance, you do slip and have one or more cigarettes, do not conclude that all is lost. Return to complete abstinence immediately and learn from your experience. ___ If you have gained significant weight since quitting, now is the time to do something about it. ___ Each time you see a cigarettes advertisement, remind yourself of why you quit. Also remember that a powerful industry spends billions of dollars each year trying to get people like yourself re-hooked. Please make appt with your DIRECTOR OF FIELD SERVICE ( [facility]) for pap/ pelvic exam as discussed. Prescriptions ordered this encounter Disp Refills Start End LEVOTHYROXINE 75 MCG TABLET 90 t* 1 04/22/2018 10/19/2018 Route: ORAL Sig: Take 1 tablet by mouth once daily. Take on empty stomach. For Thyroid. Medications Discontinued During This Encounter levothyroxine (SYNTHROID) 75 mcg tab* 90 t* 1 10/22/2017 04/22/2018 Route: ORAL Sig: Take 1 tablet by mouth once daily. Take on empty stomach. For Thyroid. Disc: Reason for discontinue is not on file. Follow Up: Discussed this visit Disposition: Return in about 6 months (around 10/20/2018), or if symptoms worsen or fail to improve. Follow-up and Disposition History Recorded Encounter Status:Closed by MD MARCEL BLOCK on 04/22/18 PROGRESS Observed: 10/22/2017 Status: COMPLETED Source: [place] 9:35 AM [facility] O ID: [id number] Author: Marcel Block Service: (none) Author Type: Physician Type: Progress Notes Filed: 10/28/2017 7:16 AM Note Text: Subjective: Lee Lind is a 32 year old White female, Patient presents with: Refill Request . HPI H/o hypothy - on synthy. Results for LEE LIND ( ) as of 10/22/2017 09:38 Ref. Range 08/23/2016 08:00 08/23/2016 08:58 02/07/2017 12:47 08/13/2017 08:10 TSH Latest Ref Range: 0.34 - 4.82 uIU/mL 1.30 1.35 2.00 Denies skin changes. Has been trying to eat healthy - lost 10lbs over past year. Last Pap 2 yrs ago - [facility]. Son is 4 yr old. H/o brain Sx - 2012, last saw Neuro[facility]x 2015 - was cleared. 17 months sober from alcohol. 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 No drinks for the past 3 weeks (3-5 drinks per week before that) Family history reviewed - MGM - DM . ALLERGIES Allergen Reactions - Penicillins Current Outpatient Prescriptions: levothyroxine (SYNTHROID) 75 mcg tablet Take 1 tablet by mouth once daily. Take on empty stomach. For Thyroid. No current facility-administered medications for this visit. Review of Systems Constitutional: Negative for chills, fever, malaise/fatigue and weight loss. HENT: Negative for congestion, ear pain and sore throat. Eyes: Negative for blurred vision and double vision. Respiratory: Negative for cough, shortness of breath and wheezing. Cardiovascular: Negative for chest pain, orthopnea and leg swelling. Gastrointestinal: Negative for abdominal pain, blood in stool, constipation, diarrhea, heartburn, nausea and vomiting. Genitourinary: Negative for dysuria. Skin: Negative for rash. Neurological: Negative for dizziness and headaches. Psychiatric/Behavioral: Negative for depression and substance abuse. The patient is not nervous/anxious and does not have insomnia. BP 122/66 Pulse 66 Temp (Src) 98.2 (Oral) Ht 5' 5 (1.65m) Wt 146 lb 12.8 oz (66.6kg) BMI 24.43 kg/(m2). Physical Exam Constitutional: She is oriented to person, place, and time and well-developed, well-nourished, and in no distress. No distress. HENT: Head: Normocephalic. Eyes: Conjunctivae are normal. Right eye exhibits no discharge. Left eye exhibits no discharge. Cardiovascular: Normal rate, regular rhythm, normal heart sounds and intact distal pulses. No murmur heard. Pulmonary/Chest: Effort normal and breath sounds normal. No respiratory distress. She has no wheezes. Abdominal: Soft. Bowel sounds are normal. She exhibits no distension. There is no tenderness. Musculoskeletal: Edema: no LE edema. Neurological: She is alert and oriented to person, place, and time. Skin: Skin is warm and dry. Psychiatric: Mood and affect normal. ASSESSMENT/PLAN: 1. Acquired hypothyroidism - ICD9: 244.9, ICD10: E03.9 (primary diagnosis) - Instructed patient on importance of taking on an empty stomach either first thing in the morning or at bedtime. - Recent TSH WNL - continue current dose of Synthroid 0.075 mg 2. Screening for lipid disorders - ICD9: V77.91, ICD10: Z13.220 - LIPID PANEL BASIC 3. Tobacco use disorder - ICD9: 305.1, ICD10: F17.200 - Cessation encouraged. - Physiologic and physical aspects of tobacco addiction as well as strategies for quitting were discussed. - Counseling was given focusing on the harmful effects of this addiction especially given the patient's medical condition(s) which will be worsened because of the chemicals in tobacco. - Counseling was given 3-4 minutes. 4. History of alcohol abuse - ICD9: 305.03, ICD10: Z87.898 Been sober. Patient to make appointment for a Pap smear with her turkey pinner. Discussed above plan with patient. Pt agreeable with above plan. Marcel Block MD This note was partially generated using [employer] voice recognition system, and there may be some incorrect words, spellings, and punctuation that were not noted in checking the note before saving. CNOV Observed: 10/22/2017 Status: COMPLETED Source: [place] 9:30 AM [facility] REPOSITORY Office Visit (AGINTMLW) LEE LIND ([id number]) 1985 F Date Time Provider Department 10/22/17 9:30 AM MARCEL BLOCK During your visit today, we recorded the following information about you: Temperature Pulse Blood pressure Weight 98.2 degrees 66/minute 122/66 66.6 kg Height 1.651 m Eb Alaniz LPN 10/22/2017 9:34 AM Signed Pt presents to establish care with SS. She needs refills on her levothyroxine, had labs recently. She is 17 months sober. Marcel Block MD 10/28/2017 7:16 AM Signed Subjective: Lee Lind is a 32 year old White female, Patient presents with: Refill Request . HPI H/o hypothy - on synthy. Results for LEE LIND ( ) as of 10/22/2017 09:38 Ref. Range 08/23/2016 08:00 08/23/2016 08:58 02/07/2017 12:47 08/13/2017 08:10 TSH Latest Ref Range: 0.34 - 4.82 uIU/mL 1.30 1.35 2.00 Denies skin changes. Has been trying to eat healthy - lost 10lbs over past year. Last Pap 2 yrs ago - [facility]. Son is 4 yr old. H/o brain Sx - 2012, last saw NeuroSx 2015 - was cleared. 17 months sober from alcohol. 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 No drinks for the past 3 weeks (3-5 drinks per week before that) Family history reviewed - MGM - DM . ALLERGIES Allergen Reactions - Penicillins Current Outpatient Prescriptions: levothyroxine (SYNTHROID) 75 mcg tablet Take 1 tablet by mouth once daily. Take on empty stomach. For Thyroid. No current facility-administered medications for this visit. Review of Systems Constitutional: Negative for chills, fever, malaise/fatigue and weight loss. HENT: Negative for congestion, ear pain and sore throat. Eyes: Negative for blurred vision and double vision. Respiratory: Negative for cough, shortness of breath and wheezing. Cardiovascular: Negative for chest pain, orthopnea and leg swelling. Gastrointestinal: Negative for abdominal pain, blood in stool, constipation, diarrhea, heartburn, nausea and vomiting. Genitourinary: Negative for dysuria. Skin: Negative for rash. Neurological: Negative for dizziness and headaches. Psychiatric/Behavioral: Negative for depression and substance abuse. The patient is not nervous/anxious and does not have insomnia. BP 122/66 Pulse 66 Temp (Src) 98.2 (Oral) Ht 5' 5ANDquot; (1.65m) Wt 146 lb 12.8 oz (66.6kg) BMI 24.43 kg/(m2). Physical Exam Constitutional: She is oriented to person, place, and time and well-developed, well-nourished, and in no distress. No distress. HENT: Head: Normocephalic. Eyes: Conjunctivae are normal. Right eye exhibits no discharge. Left eye exhibits no discharge. Cardiovascular: Normal rate, regular rhythm, normal heart sounds and intact distal pulses. No murmur heard. Pulmonary/Chest: Effort normal and breath sounds normal. No respiratory distress. She has no wheezes. Abdominal: Soft. Bowel sounds are normal. She exhibits no distension. There is no tenderness. Musculoskeletal: Edema: no LE edema. Neurological: She is alert and oriented to person, place, and time. Skin: Skin is warm and dry. Psychiatric: Mood and affect normal. ASSESSMENT/PLAN: 1. Acquired hypothyroidism - ICD9: 244.9, ICD10: E03.9 (primary diagnosis) - Instructed patient on importance of taking on an empty stomach either first thing in the morning or at bedtime. - Recent TSH WNL - continue current dose of Synthroid 0.075 mg 2. Screening for lipid disorders - ICD9: V77.91, ICD10: Z13.220 - LIPID PANEL BASIC 3. Tobacco use disorder - ICD9: 305.1, ICD10: F17.200 - Cessation encouraged. - Physiologic and physical aspects of tobacco addiction as well as strategies for quitting were discussed. - Counseling was given focusing on the harmful effects of this addiction especially given the patient's medical condition(s) which will be worsened because of the chemicals in tobacco. - Counseling was given 3-4 minutes. 4. History of alcohol abuse - ICD9: 305.03, ICD10: Z87.898 Been sober. Patient to make appointment for a Pap smear with her turkey pinner. Discussed above plan with patient. Pt agreeable with above plan. Marcel Block MD This note was partially generated using [employer] voice recognition system, and there may be some incorrect words, spellings, and punctuation that were not noted in checking the note before saving. Marcel Block MD 10/22/2017 10:10 AM Addendum SMOKING CESSATION Stopping smoking is the most important thing you can do to protect your current and future health, as well as that of your family. It is the most potent risk factor for the future development of coronary artery disease and heart attacks. Smoking is both an addiction and a learned behavior. The nicotine withdrawal takes anywhere from 2-4 weeks and results in symptoms such as irritability, fatigue, insomnia, coughing, dizziness, poor concentration, hunger and cigarette cravings. After the nicotine withdrawal period, the learned linkage between certain acts or situations and cigarette use remain. Strategies to deal with these must be developed along with new behaviors to ensure successful smoking cessation. STRATEGIES TOWARD SMOKING CESSATION - Make a list of the reasons why you want to quit, plus the benefits to be gained, and compare them to the reasons why you should continue to smoke. - Pick a specific quit date. - If you are interested in using nicotine patches or gum to assist with the nicotine withdrawal, let the staff know. - Inform friends, family, and co-workers that you are quitting and when your quit date is. Ask for their understanding and support. - Prepare your environment by removing all cigarettes prior to your quit date. - Prior to your quit date, avoid smoking in places where you spend a lot of time (such as the house, work, car). - From previous quit attempts, identify what helped you to stop smoking. - From previous quit attempts, identify what triggered relapse. How can you avoid that again? - What things (situations, emotions) do you anticipate will be most challenging, especially in the first few weeks, to your quitting effort? - What can you do to address these challenges? - Avoid (or limit) alcohol consumption during the quitting process. - If your spouse or close coworker currently smoke, consider quitting together or at the very least, develop specific plans to maintain your cigarette abstinence while in the home or at work. - Take each day, each hour, each craving, one at a time. Every step or action you take toward smoking cessation is a success. The only failure is the failure to try. - The health of you and your family, is worth the effort. STOP SMOKING CHECK LIST Preparing to Quit: ___ Make a personal pact with yourself to quit. ___ Pick a date for quitting completely. (My date to quit is ____.) ___ Write down on a card the three most important reasons for quitting. Carry the card with you from now on. Look at it several times a day. ___ Prior to quitting, eliminate smoking completely in 2 or 3 of your high risk situations. ___ Reduce consumption to one pack per day or less. ___ Change to a less desirable brand of cigarettes. ___ Discard your optical sales associate. Use matches. Carry your cigarettes in a different place. ___ Spend a little time each day picturing in your mind stressful events occurring in the future and you not smoking. Actual Quitting: The First Two Weeks ___ Get rid of all cigarettes. Put away all smoking related objects such as ashtrays. Ask the people you live with not to smoke in your presence for the first two weeks. ___ Spend as much time as possible with non-smoking people. ___ Keep busy, especially on evenings and weekends. ___ Avoid high risk situations (large parties, bars, etc.). ___ Spend lots of time in places that prohibit or discourage smoking (e.g., theaters, libraries.) ___ Drink plenty of fluids. ___ Don't substitute food or sugar based products for cigarettes. Use approved substitutions. (... ice water, high bulk/low calorie foods, sugarless gum, mouthwash, brushing teeth.) ___ Begin or increase regular exercise program. ___ When experiencing withdrawal effects: 1. Remind yourself why you are quitting (from your card). 2. Remind yourself that whatever discomfort you are experiencing is only a tiny fraction of the probable discomfort associated with continued smoking. 3. Practice deep breathing or other relaxation techniques - tapes. ___ Remind yourself that you can free yourself from this unhealthy, expensive, messy habit and become a non-smoker. Maintenance of Quitting: After two weeks ___ Remind yourself that the desire to smoke is linked to a great many situations, people and emotional stress. ___ When you do have a desire to smoke, remember that it only lasts a few seconds: distract yourself and leave the situation if necessary. ___ After each desire to smoke has passed, pat yourself on the back, you have just made progress in breaking the habit forever. ___ Save the money on wasted on cigarettes in a ANDquot;special fundANDquot; and buy yourself something nice. Maintenance of Quitting: After Two Months ___ Be particularly vigilant when unusual life events occur. (.. weddings, holidays, vacations.) ___ Be particularly vigilant when stressful life events occur (e.g., relationship problems, financial or work problems.) ___ Remind yourself regularly that not smoking is completely within your personal control. ___ Never lull yourself into thinking you are out of danger and you can safely have a cigarette or two. -- you cannot!!!!! ___ If, by chance, you do slip and have one or more cigarettes, do not conclude that ANDquot;all is lostANDquot;. Return to complete abstinence immediately and learn from your experience. ___ If you have gained significant weight since quitting, now is the time to do something about it. ___ Each time you see a cigarettes advertisement, remind yourself of why you quit. Also remember that a powerful industry spends billions of dollars each year trying to get people like yourself ANDquot;re-hookedANDquot;. Make appointment with your DIRECTOR OF FIELD SERVICE for pap. Referring Provider: SELF [200] Allergies As of Date: 10/22/2017 Noted Allergy Reaction PENICILLINS 10/15/2006 Date Reviewed: 10/22/2017 Reviewed by: Marcel Block - Fully Assessed Reason for Visit: Refill Request [94] Primary Visit Diagnosis:Acquired hypothyroidism [E03.9] Other Visit Diagnoses:Screening for lipid disorders [Z13.220] Tobacco use disorder [F17.200] History of alcohol abuse [Z87.898] Order(s):LIPID PANEL BASIC [SQLIPB] Order #: [id number] FUTURE levothyroxine (SYNTHROID) 75 mcg tabletTake 1 tablet by mouth once daily. Take on empty stomach. For Thyroid.Disp: 90 tabletRfl: 1 Prescriptions as of 10/22/2017 Sig: LEVOTHYROXINE 75 MCG TABLET Take 1 tablet by mouth once d* Medication notes this encounter LORATADINE 10 MG TABLET >> Eb Alaniz LPN 10/22/2017 9:28 AM >> EB ALANIZ LPN Oct 22, 2017 9:28 AM Not taking. Problem List As Of Date 10/22/2017 Noted Resolved TOX DIF GOITER NO CRISIS [E05.00] INVALID FOR* Hypothyroid [E03.9] INVALID FOR* More... Anxiety [F41.9] INVALID FOR* Alcohol abuse [F10.10] INVALID FOR* More... Hypothyroidism [E03.9] More... 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 Hypertension [I10] INVALID FOR*06/30/2013 More... 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 Seizure [R56.9] INVALID FOR* History of alcohol abuse [Z87.898] INVALID FOR* More... History of cocaine use [Z87.898] INVALID FOR* More... History of depression [Z86.59] INVALID FOR* More... Tobacco use in [O99.330] INVALID FOR* More... H/O sexually transmitted disease [Z86.19] INVALID FOR* More... Patient requested diagnostic testing [Z01.89] INVALID FOR*06/30/2013 More... Family history of autism [Z81.8] INVALID FOR* More... Supervision of other high-risk (V23.89*INVALID FOR* More... Patient requested diagnostic testing [Z01.89] INVALID FOR* More... Palpitation [R00.2] INVALID FOR* Tobacco use disorder [F17.200] INVALID FOR* Notes for Staff Discussed this visit Other instructions from your clinician: SMOKING CESSATION Stopping smoking is the most important thing you can do to protect your current and future health, as well as that of your family. It is the most potent risk factor for the future development of coronary artery disease and heart attacks. Smoking is both an addiction and a learned behavior. The nicotine withdrawal takes anywhere from 2-4 weeks and results in symptoms such as irritability, fatigue, insomnia, coughing, dizziness, poor concentration, hunger and cigarette cravings. After the nicotine withdrawal period, the learned linkage between certain acts or situations and cigarette use remain. Strategies to deal with these must be developed along with new behaviors to ensure successful smoking cessation. STRATEGIES TOWARD SMOKING CESSATION - Make a list of the reasons why you want to quit, plus the benefits to be gained, and compare them to the reasons why you should continue to smoke. - Pick a specific quit date. - If you are interested in using nicotine patches or gum to assist with the nicotine withdrawal, let the staff know. - Inform friends, family, and co-workers that you are quitting and when your quit date is. Ask for their understanding and support. - Prepare your environment by removing all cigarettes prior to your quit date. - Prior to your quit date, avoid smoking in places where you spend a lot of time (such as the house, work, car). - From previous quit attempts, identify what helped you to stop smoking. - From previous quit attempts, identify what triggered relapse. How can you avoid that again? - What things (situations, emotions) do you anticipate will be most challenging, especially in the first few weeks, to your quitting effort? - What can you do to address these challenges? - Avoid (or limit) alcohol consumption during the quitting process. - If your spouse or close coworker currently smoke, consider quitting together or at the very least, develop specific plans to maintain your cigarette abstinence while in the home or at work. - Take each day, each hour, each craving, one at a time. Every step or action you take toward smoking cessation is a success. The only failure is the failure to try. - The health of you and your family, is worth the effort. STOP SMOKING CHECK LIST Preparing to Quit: ___ Make a personal pact with yourself to quit. ___ Pick a date for quitting completely. (My date to quit is ____.) ___ Write down on a card the three most important reasons for quitting. Carry the card with you from now on. Look at it several times a day. ___ Prior to quitting, eliminate smoking completely in 2 or 3 of your high risk situations. ___ Reduce consumption to one pack per day or less. ___ Change to a less desirable brand of cigarettes. ___ Discard your optical sales associate. Use matches. Carry your cigarettes in a different place. ___ Spend a little time each day picturing in your mind stressful events occurring in the future and you not smoking. Actual Quitting: The First Two Weeks ___ Get rid of all cigarettes. Put away all smoking related objects such as ashtrays. Ask the people you live with not to smoke in your presence for the first two weeks. ___ Spend as much time as possible with non-smoking people. ___ Keep busy, especially on evenings and weekends. ___ Avoid high risk situations (large parties, bars, etc.). ___ Spend lots of time in places that prohibit or discourage smoking (e.g., theaters, libraries.) ___ Drink plenty of fluids. ___ Don't substitute food or sugar based products for cigarettes. Use approved substitutions. (... ice water, high bulk/low calorie foods, sugarless gum, mouthwash, brushing teeth.) ___ Begin or increase regular exercise program. ___ When experiencing withdrawal effects: 1. Remind yourself why you are quitting (from your card). 2. Remind yourself that whatever discomfort you are experiencing is only a tiny fraction of the probable discomfort associated with continued smoking. 3. Practice deep breathing or other relaxation techniques - tapes. ___ Remind yourself that you can free yourself from this unhealthy, expensive, messy habit and become a non-smoker. Maintenance of Quitting: After two weeks ___ Remind yourself that the desire to smoke is linked to a great many situations, people and emotional stress. ___ When you do have a desire to smoke, remember that it only lasts a few seconds: distract yourself and leave the situation if necessary. ___ After each desire to smoke has passed, pat yourself on the back, you have just made progress in breaking the habit forever. ___ Save the money on wasted on cigarettes in a special fund and buy yourself something nice. Maintenance of Quitting: After Two Months ___ Be particularly vigilant when unusual life events occur. (.. weddings, holidays, vacations.) ___ Be particularly vigilant when stressful life events occur (e.g., relationship problems, financial or work problems.) ___ Remind yourself regularly that not smoking is completely within your personal control. ___ Never lull yourself into thinking you are out of danger and you can safely have a cigarette or two. -- you cannot!!!!! ___ If, by chance, you do slip and have one or more cigarettes, do not conclude that all is lost. Return to complete abstinence immediately and learn from your experience. ___ If you have gained significant weight since quitting, now is the time to do something about it. ___ Each time you see a cigarettes advertisement, remind yourself of why you quit. Also remember that a [employer] industry spends billions of dollars each year trying to get people like yourself re-hooked. Make appointment with your DIRECTOR OF FIELD SERVICE for pap. Visit Notes: >> Eb (Engineering Professor) Katty Zuniga Oct 22, 2017 9:33 AM Status: Signed Pt presents to establish care with SS. She needs refills on her levothyroxine, had labs recently. She is 17 months sober. Prescriptions ordered this encounter Disp Refills Start End LEVOTHYROXINE 75 MCG TABLET 90 t* 1 10/22/2017 04/20/2018 Route: ORAL Sig: Take 1 tablet by mouth once daily. Take on empty stomach. For Thyroid. Medications Discontinued During This Encounter loratadine (CLARITIN) 10 mg tablet 10 t* 0 09/10/2016 10/22/2017 Route: ORAL Sig: Take 1 tablet by mouth once daily. Disc: Discontinued by Patient levothyroxine (SYNTHROID) 75 mcg tab* 30 t* 0 08/23/2017 10/22/2017 Route: ORAL Sig: Take 1 tablet by mouth once daily. Take on empty stomach. For Thyroid. Disc: Reason for discontinue is not on file. Follow Up: Discussed this visit Disposition: Return in about 6 months (around 04/24/2018), or if symptoms worsen or fail to improve, for hypothyroidism. Follow-up and Disposition History Recorded Encounter Status:Closed by MD BLOCK SIMRANJOT on 10/28/17 ALLERGIES ALLERGIES DATE TYPE / CODE NAME / CODE REACTION SEVERITY SOURCE 09/03/2018 Drug Penicillins/ Hives Unknown [facility] Allergy/4160 [id number]([facility] 18274(SNOMED XNORM) Repository CT) ENCOUNTERS ENCOUNTERS ADMIT/DISCHARGE ACCOUNT ADMITTING ENCOUNTER LOCATION SOURCE NUMBER CLASS 09/03/2018/ [id number] Emergency [place] ing:ED Repository PAYERS PAYERS ENCOUNTER GUARANTOR PAYER SUBSCRIBER SOURCE 09/03/2018 LEE Serra Primary LEE Nye [id number] OLD Insurance:CARESOURCEP MIGUEL ÁNGELDOB: [facility] damian [facility]: [id number] [address]Yui: [id number] Repository Date:2018-09-03P O (CG) [address]ATTN: [place] [address]CW: 09/03/2018 Secondary NOT GIVENUNK [place] Insurance:SELF PAY [facility] Number: Effective Repository Date:2018-09-03
== END 2018-09-03 13:28 | disposition home or self-care (01) ==
LOC: ED 12:52
PROVIDERS: Emergency Provider Emergency Medicine; Family Provider Student in an Organized Health Care Education/Training Program; PCP Student in an Organized Health Care Education/Training Program
DX: R42 Dizziness and giddiness (principal); R53.1 Weakness; F17.200 Nicotine dependence, unspecified, uncomplicated
CPT/HCPCS: 36415; 70450; 80048; 82375; 84703; 85025; 96360; 99283; J7030

== ENCOUNTER 2021-10-11 11:33 | Outpatient (CLI) | payer MEDICAID, SELFPAY ==
[2021-10-11 11:47] VITALS: BP 132/78; PULSE 69
[2021-10-11 11:57] VITALS: BMI 26.3
[2021-10-11] MEDS: Ringers, Lactated 1,000 ML IV.SOLN. 1000 ML IV (12:15)
[2021-10-11] MEDS: Betamethasone/Betamethasone 30 MG/5 ML Vial 12 MG IM (12:25)
[2021-10-11 12:33] LABS: Hematocrit 36.8 % (37-47); Hemoglobin 12.7 g/dL (12.0-15.0); Mean Corp Hgb Conc 34.5 g/dL (32-36); Mean Corpuscular Hgb 32.7 pg (27.0-32.0); Mean Corpuscular Volume 94.8 fL (81-99); Mean Platelet Vol. 11.8 fl (6.2-12.0); Platelet Count 200 K/mm3 (150-450); RBC Distribution Width CV 13.2 % (11.6-14.6); RBC Distribution Width SD 45.4 fl (35.1-43.9); Red Blood Count 3.88 M/mm3 (4.2-5.4); White Blood Count 17.3 K/mm3 (4.4-11.0)
[2021-10-11 12:46] LABS: International Normalized Ratio 0.9
[2021-10-11 12:47] LABS: Partial Thromboplast Time 30.6 Seconds (24.1-36.2)
--- NOTE | 2021-10-11 12:48 | PCM.HP.OB ---
HPI - General HPI Narrative LEE DEL ROSARIO, is a 36 F who presents Maternal Data Information Final JOHN: 11/27/21 Gestational age: 33 2/7 PFSH PFSH Home Medications aspirin 162 mg PO/SL DAILY 10/11/21 [History Last Taken 10/11/21 07:30] levothyroxine 100 mcg PO DAILY 10/11/21 [History Last Taken 10/11/21 07:30] no.144-folic acid [] 2 tab PO DAILY 10/11/21 [History Last Taken 10/11/21 07:30] vit B comp C no.82-nbay-bdbll 1 tab PO/SL DAILY 10/11/21 [History Last Taken 10/11/21 07:30] vit N-A2-E-IE-Fe-hgb-lyc-L-car 1 tab PO/SL DAILY 10/11/21 [History Last Taken 10/11/21 07:30] Allergy/AdvReac Type Severity Reaction Status Date / Time Penicillins [PCN] Allergy Hives Verified 10/11/21 11:50 Social History Smoking Status: Current every day smoker NST FHR Rate Baby A Baseline: normal Variability:: Moderate Accelerations:: 15 x 15 Decelerations:: None NST Reactive:: Yes FHR Category:: Category I Uterine Activity:: irreg ctxs ROS Constitutional Constitutional: Denies fatigue, fever(s) or malaise Eyes Eyes: Denies change in vision ENT HEENT: Denies dizziness or headache(s) Cardiovascular Cardiovascular: Denies chest pain, dyspnea or lightheadedness Respiratory/Chest Respiratory/Chest: Denies cough or dyspnea Gastrointestinal Gastrointestinal: Denies change in bowel habits Genitourinary Genitourinary: Denies burning urination or genital lesions Integumentary Integumentary: Denies rash Neurologic Neurologic: Denies confusion, dizziness, headache(s), numbness or weakness Vital Signs Vital Signs Vital Signs: 10/11/21 11:47 Pulse Rate 69 Blood Pressure 132/78 H BP Systolic 132 BP Diastolic 78 Weight Weight: 74 kg Body Mass Index (BMI) 26.3 Physical Exam Narrative Brief ultrasound confirms vertex fetus. Grossly normal fluid. Cervix is closed, thick and firm. There is approximately 100 cc of dark red blood in the vault. No active bleeding from the cervical os. Cervix is nonfriable. Vagina is otherwise normal. Const alert and no apparent distress General Appearance: cooperative HEENT normocephalic Resp normal respiratory effort Cardio regular rate GI soft to palpation GI Narrative: gravid, nontender, appropriate for gestational age Extremity no calf tenderness General Extremity: edema Skin no wounds Rashes: No rashes noted Psych activity/motor behavior normal Labs Labs Labs: Blood Type Pending Antibody Screen Pending Hct 36.8 % (37-47) L Hgb 12.7 g/dL (12.0-15.0) Group B Strep DNA Pending Assessment & Plan (1) 33 weeks gestation of : (2) Advanced maternal age (AMA) in : (3) High risk multigravida in third trimester: (4) Previous delivery affecting : (5) Placental abruption in third trimester: PLAN: 36-year-old 3 para 1-0-1-1 at 33-2/7 weeks gestation with vaginal bleeding. No evidence of labor. No clinical evidence of spontaneous rupture of membranes. Cervix is closed and on exam no gush of fluid when I checked her. Amniotic fluid volume is normal on ultrasound. Unable to order ROM plus due to gross vaginal bleeding. Unable to do group B strep. Since patient is not in labor will not give antibiotic prophylaxis. Will leave on continuous monitoring and n.p.o. for now. Betamethasone given. Hemoglobin is stable. Vitals are stable. heart tones are reassuring. Waiting for coags. Will monitor serial labs and continue order continuous monitoring until bleeding slows or stops, or indication for delivery arises. Plan reviewed with patient. 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 If patient has worsening abruption, this could cause and maternal blood loss, lack of oxygen, stroke and/or . Attending concrete pipe maker notified of patient's admission and observation.
[2021-10-11 14:24] LABS: Group B Strep DNA By PCR Negative (Negative); Internal Control PASS; Probe Check PASS; Specimen Processing Control PASS
[2021-10-11 17:00] VITALS: BP 121/55; PULSE 57; TEMP 36.8
[2021-10-11 18:15] LABS: Hematocrit 35.3 % (37-47); Hemoglobin 12.7 g/dL (12.0-15.0); Mean Corpuscular Hgb 33.6 pg (27.0-32.0); Mean Corpuscular Volume 93.4 fL (81-99); Mean Platelet Vol. 11.9 fl (6.2-12.0); Platelet Count 203 K/mm3 (150-450); RBC Distribution Width CV 13.2 % (11.6-14.6); RBC Distribution Width SD 44.9 fl (35.1-43.9); Red Blood Count 3.78 M/mm3 (4.2-5.4); White Blood Count 20.8 K/mm3 (4.4-11.0)
[2021-10-11 19:37] LABS: Partial Thromboplast Time 31.1 Seconds (24.1-36.2); Prothrombin Time (Protime)PT. 12.4 SECONDS (11.7-14.9)
[2021-10-11 19:43] LABS: Fibrinogen 412 mg/dl (203-444)
[2021-10-11 19:47] VITALS: TEMP 36.6
[2021-10-11 19:49] VITALS: BP 133/60; PULSE 59
[2021-10-11] MEDS: Acetaminophen 500 MG Tablet 1000 MG PO (21:00)
[2021-10-11] MEDS: 0.9% Saline Lock 10 ML Syringe IV (21:01)
[2021-10-11] MEDS: Zolpidem Tartrate 5 MG Tablet PO (21:55)
[2021-10-12 00:08] VITALS: BP 122/58; PULSE 65
[2021-10-12 00:09] VITALS: TEMP 36.8; O2SAT 95
[2021-10-12 05:09] VITALS: BP 122/58; PULSE 71; TEMP 36.8; O2SAT 96
[2021-10-12 07:16] VITALS: BP 115/66; PULSE 62; TEMP 36.6; O2SAT 96
[2021-10-12 07:17] VITALS: O2SAT 80
[2021-10-12] MEDS: 0.9% Saline Lock 10 ML Syringe IV (07:21)
[2021-10-12 07:55] LABS: Absolute Lymphocyte Count 2.46 X10^3/uL (0.83-4.51); Absolute Neutrophil Count 18.6 X10^3/uL (2.0-7.7); Basophil# 0.03 X10^3/uL; Basophil% 0.1 % (0-1); Eosinophil# 0.02 X10^3/uL; Eosinophils% 0.1 % (0-5); Hematocrit 36.6 % (37-47); Hemoglobin 12.6 g/dL (12.0-15.0); Lymphocyte # 2.46 X10^3/ul (0.83-4.51); Lymphocyte % 10.9 % (19-41); Mean Corp Hgb Conc 34.4 g/dL (32-36); Mean Corpuscular Hgb 32.8 pg (27.0-32.0); Mean Corpuscular Volume 95.3 fL (81-99); Mean Platelet Vol. 12.4 fl (6.2-12.0); Monocyte# 1.14 X10^3/uL; Monocyte% 5.1 % (0-10); NRBC Flagged by Analyzer 0 % (0-5); Neutrophil # 18.58 X10^3/uL (2.7-7.7); Neutrophil % 82.6 % (47-70); Platelet Count 219 K/mm3 (150-450); RBC Distribution Width CV 13.3 % (11.6-14.6); RBC Distribution Width SD 46.5 fl (35.1-43.9); Red Blood Count 3.84 M/mm3 (4.2-5.4); White Blood Count 22.5 K/mm3 (4.4-11.0)
--- NOTE | 2021-10-12 08:13 | PCM.PN.OB ---
Subjective Subjective Patient seen at bedside. Denies any present cramps or contractions. Had one episode of scant bleeding when got up to void and coughed. No active bleeding or leaking of fluid. Positive movement. C/O LLQ pain that feels like a pinching feeling that comes and goes. Objective Data Objective Data Vital Signs: Vital Signs Temp Pulse BP Pulse Ox 97.8 F 62 115/66 80 10/12/21 07:16 10/12/21 07:16 10/12/21 07:16 10/12/21 07:17 Weight: 163 lb 2.273 oz Body Mass Index (BMI) 26.3 Lab / Micro Data Result Diagrams: 10/12/21 07:40 Labs: Laboratory Results - last 24 hr 10/11/21 12:15: WBC 17.3 H, RBC 3.88 L, Hgb 12.7, Hct 36.8 L, MCV 94.8, MCH 32.7 H, MCHC 34.5, RDW Std Deviation 45.4 H, RDW Coeff of Ravin 13.2, Plt Count 200, MPV 11.8 10/11/21 12:15: PT 12.0, INR 0.9, APTT 30.6 10/11/21 12:15: Group B Strep DNA Negative, Specimen Comment Not Reportable 10/11/21 12:15: Blood Type O POSITIVE, Antibody Screen NEGATIVE 10/11/21 18:05: WBC 20.8 H, RBC 3.78 L, Hgb 12.7, Hct 35.3 L, MCV 93.4, MCH 33.6 H, MCHC 36.0, RDW Std Deviation 44.9 H, RDW Coeff of Ravin 13.2, Plt Count 203, MPV 11.9 10/11/21 18:05: PT 12.4, INR 1.0, APTT 31.1, Fibrinogen 412 10/12/21 07:40: WBC 22.5 H, RBC 3.84 L, Hgb 12.6, Hct 36.6 L, MCV 95.3, MCH 32.8 H, MCHC 34.4, RDW Std Deviation 46.5 H, RDW Coeff of Ravin 13.3, Plt Count 219, MPV 12.4 H, Immature Gran % (Auto) 1.200 H, Neut % (Auto) 82.6 H, Lymph % (Auto) 10.9 L, [place] % (Auto) 5.1, Eos % (Auto) 0.1, Baso % (Auto) 0.1, Absolute Neuts (auto) 18.6 H, Absolute Lymphs (auto) 2.46, Nucleated RBC % 0 ROS Eyes Eyes: Denies blurry vision, change in vision or spots in vision ENT HEENT: Denies dizziness or headache(s) Cardiovascular Cardiovascular: Denies chest pain or dyspnea Respiratory/Chest Respiratory/Chest: Denies cough, dyspnea, shortness of breath at rest or shortness of breath with exertion Gastrointestinal Gastrointestinal: Denies diarrhea or vomiting Genitourinary Genitourinary: Denies change in urinary stream, difficulty urinating or dysuria Musculoskeletal Musculoskeletal: Reports none Integumentary Integumentary: Denies rash Neurologic Neurologic: Denies dizziness, headache(s), memory loss or weakness Physical Exam Const alert and no apparent distress General Appearance: cooperative Orientation / Consciousness: awake Exam Limitations: no limitations HEENT normocephalic Eyes General Eye: normal appearance of both eyes Neck full ROM Chest inspection of chest normal Resp normal respiratory effort and normal air movement Effort and Inspection: symmetric chest movement Auscultation: clear to auscultation bilaterally Cardio regular rate GI soft to palpation and non-distended Inspection: and other Back/Spine normal ROM Extremity full ROM, normal capillary refill and no calf tenderness Skin no rashes or lesions noted Neuro oriented x3 and CN's II-XII intact bilaterally Psych mental status grossly normal Assessment & Plan (1) Vaginal bleeding during , antepartum: (2) Placental abruption in third trimester: (3) Previous delivery affecting : (4) High risk multigravida in third trimester: (5) Advanced maternal age (AMA) in : (6) 33 weeks gestation of : PLAN: Celestone 12 mg IM x 1 - second dose today Awaiting lab results Dr. Do to see patient
[2021-10-12 08:23] LABS: Prothrombin Time (Protime)PT. 12.5 SECONDS (11.7-14.9)
[2021-10-12 08:27] LABS: Fibrinogen 410 mg/dl (203-444)
--- NOTE | 2021-10-12 08:48 | PCM.PROGNOTE ---
Subjective Subjective Patient seen at bedside, doing well. Patient reports Patient denies any gush of fluid. She reports onset left lower quadrant pain. She states that the pain is a good movement. She does report new overnight no further heavy bright red bleeding. 6 out of 10 hurts to move and very tender on palpation. Patient denies any nausea vomiting or fevers. She does not feel chilled. She is urinating without difficulty. Patient offers no other concerns at this time. Objective Data Objective Data Vital Signs: Vital Signs Temp Pulse BP Pulse Ox 97.8 F 62 115/66 80 10/12/21 07:16 10/12/21 07:16 10/12/21 07:16 10/12/21 07:17 Weight: 74 kg Body Mass Index (BMI) 26.3 Lab / Micro Data Result Diagrams: 10/12/21 07:40 Labs: Laboratory Results - last 24 hr 10/11/21 12:15: WBC 17.3 H, RBC 3.88 L, Hgb 12.7, Hct 36.8 L, MCV 94.8, MCH 32.7 H, MCHC 34.5, RDW Std Deviation 45.4 H, RDW Coeff of Ravin 13.2, Plt Count 200, MPV 11.8 10/11/21 12:15: PT 12.0, INR 0.9, APTT 30.6 10/11/21 12:15: Group B Strep DNA Negative, Specimen Comment Not Reportable 10/11/21 12:15: Blood Type O POSITIVE, Antibody Screen NEGATIVE 10/11/21 18:05: WBC 20.8 H, RBC 3.78 L, Hgb 12.7, Hct 35.3 L, MCV 93.4, MCH 33.6 H, MCHC 36.0, RDW Std Deviation 44.9 H, RDW Coeff of Ravin 13.2, Plt Count 203, MPV 11.9 10/11/21 18:05: PT 12.4, INR 1.0, APTT 31.1, Fibrinogen 412 10/12/21 07:40: WBC 22.5 H, RBC 3.84 L, Hgb 12.6, Hct 36.6 L, MCV 95.3, MCH 32.8 H, MCHC 34.4, RDW Std Deviation 46.5 H, RDW Coeff of Ravin 13.3, Plt Count 219, MPV 12.4 H, Immature Gran % (Auto) 1.200 H, Neut % (Auto) 82.6 H, Lymph % (Auto) 10.9 L, [place] % (Auto) 5.1, Eos % (Auto) 0.1, Baso % (Auto) 0.1, Absolute Neuts (auto) 18.6 H, Absolute Lymphs (auto) 2.46, Nucleated RBC % 0 10/12/21 07:40: PT 12.5, INR 1.0, Fibrinogen 410 Physical Exam Narrative General: Female no apparent distress Abdomen: Gravid, soft. Positive tenderness to palpation of the left lower quadrant. No rebound. No guarding. Limited Bedside Ultrasound: Vertex, SUDHAKAR WNL Speculum: + old dark blood, cleaned out of vault- no pooling of fluid on exam. Cervix closed. Assessment & Plan Assessment/Plan (1) Vaginal bleeding during , antepartum: (2) Previous delivery affecting : (3) High risk multigravida in third trimester: (4) Advanced maternal age (AMA) in : (5) 33 weeks gestation of : PLAN: HD#1, vaginal bleeding in - resolved, LLQ pain, 33 weeks, AMA 1) Possible partial abruption in reviewed- labs stable- no further active bright red bleeding 2) elevated WBC - received sternoids so this is expected. will get second dose at noon today. 3) Spoke to [facility] Dr. Duval- agree with dc home if no further bleeding, will have twice weekly testing. 4) bleeding precautions reviewed. if further bleeding instructed to go to [facility] for admission and possible delivery vs monitoring. if heavy bleeding, severe, pain or concerned with imminent delivery will report to nearest hospital. 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 ok to return saturday if testing reassuring.
[2021-10-12 09:39] LABS: Partial Thromboplast Time 29.9 Seconds (24.1-36.2)
[2021-10-12] MEDS: Levothyroxine 100 MCG Tablet PO (11:35)
[2021-10-12 11:37] VITALS: BP 123/62; PULSE 59; TEMP 36.8
[2021-10-12] MEDS: Betamethasone/Betamethasone 30 MG/5 ML Vial 12 MG IM (12:53)
--- NOTE | 2021-10-12 13:02 | NURSING ---
A scant amount of brown blood noted on patient's pad. Patient has denied bright, red blood this morning. Notified to call physician if new vaginal bleeding occurs.
== END 2021-10-12 13:09 | disposition home or self-care (01) ==
LOC: WPOUT 11:36 → WP 11:36
PROVIDERS: PCP Student in an Organized Health Care Education/Training Program; Referring Provider Obstetrics & Gynecology; Visit Provider Obstetrics & Gynecology
DX: O45.93 Premature separation of placenta, unspecified, third trimester (principal); O26.893 Other specified pregnancy related conditions, third trimester; Z3A.33 33 weeks gestation of pregnancy; F17.200 Nicotine dependence, unspecified, uncomplicated; O99.333 Smoking (tobacco) complicating pregnancy, third trimester; O09.523 Supervision of elderly multigravida, third trimester; O09.513 Supervision of elderly primigravida, third trimester; O34.219 Maternal care for unspecified type scar from previous cesarean delivery; O99.413 Diseases of the circulatory system complicating pregnancy, third trimester; I67.5 Moyamoya disease; Z79.82 Long term (current) use of aspirin; Z79.899 Other long term (current) drug therapy
CPT/HCPCS: 36415; 59025; 59050; 76815; 85025; 85027; 85384; 85610; 85730; 86850; 86900; 86901; 87081; 87653; 96372; 99218; J7120; A4216; G0378; J0702